=== PATIENT | female | born 1965 | race African-American/Black ===

== ENCOUNTER 2018-06-09 08:52 | Outpatient (CLI) | payer OTHER ==
[~2018-06-09 08:52] MED LIST: DOLOGEN CAPLET1 EACH PO; ORPH100T PO
== END 2018-06-09 08:53 | disposition home or self-care (01) ==
LOC: LAB 08:52
DX: Z12.11 Encounter for screening for malignant neoplasm of colon (principal); Z13.1 Encounter for screening for diabetes mellitus; R03.0 Elevated blood-pressure reading, without diagnosis of hypertension

== ENCOUNTER 2022-04-30 10:30 | Outpatient (CLI) | payer OTHER | END 2022-04-30 10:39 | disposition home or self-care (01) | LOC: MAMO-SONO 10:30 | PROVIDERS: ATTEND General Practice | DX: Z12.31 Encounter for screening mammogram for malignant neoplasm of breast (principal); N64.4 Mastodynia ==

== ENCOUNTER 2022-06-03 08:00 | Outpatient (CLI) | payer OTHER | END 2022-06-03 08:05 | disposition home or self-care (01) | LOC: PPH VACUNA 08:00 | PROVIDERS: ATTEND Emergency Medicine Pediatric Emergency Medicine | DX: Z23 Encounter for immunization (principal) ==

== ENCOUNTER 2022-10-26 09:45 | Emergency (ER) | payer OTHER ==
[~2022-10-26] VITALS: Ht 157.5 cm; Wt 103.4 kg
== END 2022-10-26 12:18 | disposition home or self-care (01) ==
LOC: ER 09:45
DX: B34.9 Viral infection, unspecified (principal); Z88.0 Allergy status to penicillin; Z20.822 Contact with and (suspected) exposure to COVID-19

== ENCOUNTER 2022-10-26 12:33 | Outpatient (CLI) | payer OTHER | END 2022-10-26 12:35 | disposition home or self-care (01) | LOC: LAB 12:33 | PROVIDERS: ATTEND General Practice | DX: J06.9 Acute upper respiratory infection, unspecified (principal); R05.9 Cough, unspecified; R06.02 Shortness of breath; R50.9 Fever, unspecified ==